=== PATIENT | male | born 2000 | race American Indian/Alaskan Native ===

== ENCOUNTER 2020-09-14 11:07 | Emergency (ER) | payer OTHER ==
[2020-09-14 11:26] VITALS: BP 127/72; PULSE 102; TEMP 99.2; BMI 18.8
[2020-09-14 12:15] LABS: THROAT:GRP A STREP ANTIGEN Negative (Negative)
== END 2020-09-14 12:45 | disposition home or self-care (01) ==
LOC: JERFT 11:07
DX: J02.9 Acute pharyngitis, unspecified (principal)
CPT/HCPCS: 87070; 87077; 87880; 99283-25; C9803; U0003

== ENCOUNTER 2024-08-27 21:56 | Emergency (ER) | payer OTHER ==
[2024-08-27 22:19] VITALS: BP 154/83; PULSE 107; RESP 18; TEMP 98.9; BMI 22.8
[2024-08-27] MEDS ORDERED: SULFAMETHOXAZOLE/TRIMETHOPRIM 800MG/160MG D.S. TABLET ONE (22:52)
[2024-08-27] MEDS ORDERED: IBUPROFEN 400 MG TABLET (FP) PO ONE (22:52)
[2024-08-27] MEDS: IBUPROFEN 400 MG TABLET (FP) PO ONE (23:05)
[2024-08-27] MEDS: AMOX TR/POT CLAV 875MG/125MG TABLETS (FP) PO ONE (23:05)
[2024-08-28 00:47] LABS: HIV INTERPRETATION NEGATIVE (NEGATIVE)
== END 2024-08-27 23:06 | disposition home or self-care (01) ==
LOC: JERFT 21:56
DX: S01.85XA Open bite of other part of head, initial encounter (principal); W54.0XXA Bitten by dog, initial encounter
CPT/HCPCS: 36415; 86803; 87389; 99283-25